=== PATIENT | female | born 1960 | race Caucasian/White ===

== ENCOUNTER 2019-11-27 17:05 | Emergency (ER) | payer SELFPAY ==
[~2019-11-27] VITALS: Ht 154.9 cm; Wt 122.5 kg
--- OUTSIDE RECORDS SUMMARY | ~2019-11-27 | XMS | Clinical Summary ---
Demographics + + + | Address | [address] | | | [place] [address] | + + + | Home Phone | | + + + | Preferred Language | Unknown | + + + | Marital Status | Unknown | + + + | Hinduism Affiliation | Unknown | + + + | Race | Unknown | + + + | Ethnic Group | Unknown | + + + Author + + + | Author | [facility] | | | and [place] | + + + | Organization | [facility] | | | and [place] | + + + | Address | Unknown | + + + | Phone | Unavailable | + + + Care Team Providers + +------+ + | Care Mining Machinery Assembler Name | Role | Phone | + +------+ + PCP | Unavailable | + +------+ + Allergies Not on File Medications Not on file Active Problems Not on file Social History + +-------+ +--------+------+ | Tobacco Use | Types | Packs/Day | Years | Date | | | | | Used | | + +-------+ +--------+------+ | Never Assessed | | | | | + +-------+ +--------+------+ + + + | Sex Assigned at | Date Recorded | | | | + + + | Not on file | | + + + Last Filed Vital Signs Not on file Plan of Treatment + + +-------+ + | Health Maintenance | Due Date | Last | Comments | | | | Done | | + + +-------+ + | Vaccine: | | | | | Dtap/Tdap/Td (1 - | 0 | | | | Tdap) | | | | + + +-------+ + | Cervical Cancer | | | | | Screening (Pap) | 1 | | | + + +-------+ + | Vaccine: Zoster (1 | | | | | of 2) | 1 | | | + + +-------+ + | Breast Cancer | | | | | Screening | 6 | | | + + +-------+ + | Vaccine: Influenza | | | | | (#1) | 0 | | | + + +-------+ + Results Not on filefrom Last 3 Months"
--- OUTSIDE RECORDS SUMMARY | ~2019-11-27 | XMS | Encounter Summary ---
Demographics + + + | Address | [address] | | | [place] [address] | + + + | Home Phone | | + + + | Preferred Language | Unknown | + + + | Marital Status | Unknown | + + + | Restorationism Affiliation | Unknown | + + + | Race | Unknown | + + + | Ethnic Group | Unknown | + + + Author + + + | Author | [facility] | | | and [place] | + + + | Organization | [facility] | | | and [place] | + + + | Address | Unknown | + + + | Phone | Unavailable | + + + Care Team Providers + +------+ + | Care Canoe Maker Name | Role | Phone | + +------+ + PCP | Unavailable | + +------+ + Encounter Details +--------+ + + + + | Date | Type | Department | Care Team | Description | +--------+ + + + + | 12/04/ | Hospital | [facility] | [place], | | | 2008 - | Encounter | [facility] | Kana Pruett MD [address] | | | | | CENTER [address] | [facility] | | | 12/23/ | | [place] | [address] [place] | | | 2008 | | [address] | [address] | | | | | [phone] | | | +--------+ + + + + Social History + +-------+ +--------+------+ | Tobacco [...] on file | | + + + documented as of this encounter Plan of Treatment Not on filedocumented as of this encounter Visit Diagnoses Not on filedocumented in this encounter"
--- OUTSIDE RECORDS SUMMARY | ~2019-11-27 | XMS | Encounter Summary ---
Demographics + + + | Address | [address] | | | [place] [address] | + + + | Home Phone | | + + + | Preferred Language | Unknown | + + + | Marital Status | Unknown | + + + | Caodaism Affiliation | Unknown | + + + | Race | Unknown | + + + | Ethnic Group | Unknown | + + + Author + + + | Author | [facility] | | | and [place] | + + + | Organization | [facility] | | | and [place] | + + + | Address | Unknown | + + + | Phone | Unavailable | + + + Care Team Providers + +------+ + | Care Reticle Printer Name | Role | Phone | + +------+ + PCP | Unavailable | + +------+ + Encounter Details +--------+ + + + + | Date | Type | Department | Care Team | Description | +--------+ + + + + | 08/27/ | Hospital | [facility] | | | | 2008 - | Encounter | MED [facility] | | | | | | CENTER [address] | | | | 09/22/ | | [place] | | | | 2008 | | [address] | | | | | | [phone] | | | +--------+ + + + [...]
--- OUTSIDE RECORDS SUMMARY | ~2019-11-27 | XMS | Encounter Summary ---
Demographics + + + | Address | [address] | | | [place] [address] | + + + | Home Phone | | + + + | Preferred Language | Unknown | + + + | Marital Status | Unknown | + + + | Hoahaoism Affiliation | Unknown | + + + | Race | Unknown | + + + | Ethnic Group | Unknown | + + + Author + + + | Author | [facility] | | | and [place] | + + + | Organization | [facility] | | | and [place] | + + + | Address | Unknown | + + + | Phone | Unavailable | + + + Care Team Providers + +------+ + | Care Community Development Manager Name | Role | Phone | + +------+ + PCP | Unavailable | + +------+ + Encounter Details +--------+ + + + + | Date | Type | Department | Care Team | Description | +--------+ + + + + | 10/23/ | Hospital | [facility] | [place], | | | 2008 - | Encounter | MED [facility] | Kana Pruett MD [address] | | | | | CENTER [address] | [facility] | | | 11/22/ | | [place] | [address] [place] | | | 2008 | | [address] | [address] | | | | | [phone] | | | +--------+ + + + [...]
--- NOTE | 2019-11-28 07:36 | EKG ---
[facility] [address] [place] [address] Signed Marked sinus bradycardia Left axis deviation RSR' or QR pattern in V1 suggests right ventricular conduction delay Voltage criteria for left ventricular hypertrophy Nonspecific ST abnormality Abnormal ECG No previous ECGs available Confirmed by DAVID HINES MD ([id number]) on 11/28/2019 7:36:13 AM Electronically Signed By: DAVID HINES MD 11/28/19 0736 PATIENT NAME: HECTOR LUCERO Electrocardiogram DATE OF : 62 PHYSICIAN: DAVID HINES MD REPORT #: [id number] REPORT IS CONFIDENTIAL AND NOT TO BE RELEASED WITHOUT AUTHORIZATION
== END 2019-11-28 00:53 | disposition short-term general hospital (02) ==
LOC: ED 17:05
PROC: 0T9B80Z Drainage of Bladder with Drainage Device, Via Natural or Artificial Opening Endoscopic (ICD-10-PCS; principal; 2019-11-28)
DX: I44.1 Atrioventricular block, second degree (principal); I50.9 Heart failure, unspecified; G40.909 Epilepsy, unspecified, not intractable, without status epilepticus; Z88.0 Allergy status to penicillin; Z88.8 Allergy status to other drugs, medicaments and biological substances; Z88.5 Allergy status to narcotic agent; Z91.02 Food additives allergy status
CPT/HCPCS: 51702; 71045; 80053; 83735; 83880; 84484; 85025; 93005; 93010; 99285-25; J1940